=== PATIENT | female | born 1970 | race Caucasian/White ===

== ENCOUNTER 2021-08-05 08:15 | Emergency (ER) | payer OTHER ==
[2021-08-05] MEDS ORDERED: Ketorolac Tromethamine 30 MG/ML VIAL ONE (08:41)
[2021-08-05] MEDS ORDERED: Diazepam 5 MG TAB ONE (09:18)
== END 2021-08-05 09:19 | disposition home or self-care (01) ==
LOC: CSHERS 08:15
DX: S33.5XXA Sprain of ligaments of lumbar spine, initial encounter (principal); W51.XXXA Accidental striking against or bumped into by another person, initial encounter; Y92.69 Other specified industrial and construction area as the place of occurrence of the external cause
CPT/HCPCS: 72170; 96372; J1885